=== PATIENT | male | born 1975 | race African-American/Black ===

== ENCOUNTER 2021-09-16 17:44 | Emergency (ER) | payer MEDICAID ==
[~2021-09-16] VITALS: Ht 185.4 cm; Wt 101.6 kg
[2021-09-16 17:55] VITALS: BP 128/81
[2021-09-16] MEDS ORDERED: SULF-58 PO (18:34)
[2021-09-16 20:06] VITALS: BP 128/81
== END 2021-09-16 20:06 | disposition home or self-care (01) ==
LOC: MED 17:44
DX: S91.332A Puncture wound without foreign body, left foot, initial encounter (principal); W45.0XXA Nail entering through skin, initial encounter; Y92.89 Other specified places as the place of occurrence of the external cause; Y93.01 Activity, walking, marching and hiking; Y99.8 Other external cause status
CPT/HCPCS: 90471; 90715; 99283